=== PATIENT | female | born 1975 | race Caucasian/White ===

== ENCOUNTER 2016-12-09 08:41 | Emergency (ER) | payer SELFPAY ==
--- NOTE | 2016-12-09 11:22 | DIAGNOSTIC IMAGING REPORT ---
PROCEDURE: CT ABD/PELVIS WITH CONTRAST INDICATION: Right abdominal pain. History of cholecystectomy and section. TECHNIQUE: 125 ml of Isovue 300 were injected intravenously and axial images were obtained of the entire abdomen and pelvis with sagittal and coronal reformations. COMPARISON: None. FINDINGS: ABDOMEN: Status post cholecystectomy. Borderline distention of the common duct 10 mm) with mild intrahepatic ductal dilation). Mild mucosal thickening of the distal antral folds of the stomach. Bowel pattern is otherwise normal, including appendix. Liver, spleen, pancreas, kidneys, and aorta are normal. PELVIS: Uterus is bulbous, with probable fibroid changes and cervical Nabothian cysts. section scar. Left ovary is enlarged (4.0 cm) secondary to a 3.5 cm cyst. Right ovary is normal (2.87 meters). No evidence of free fluid. IMPRESSION: 1. Status post cholecystectomy. 2. Borderline distention of the common bile duct (10 mm) with mild intrahepatic ductal dilation. While this may be normal post cholecystectomy, consider occult common duct obstruction. Correlation with liver function studies is recommended. 3. Findings suggest mild mucosal thickening of the distal gastric antrum. Consider hyperacidity/gastritis. 4. Normal appendix. 5. Mild enlargement of the left ovary (4 cm) secondary to a 3.5 cm cyst. Follow-up pelvic ultrasound (3-4 weeks) is recommended to confirm resolution). 6. Mild enlargement the uterus suggest fibroid changes. 7. Findings discussed with Dr. Channing Burrell. All CT scans at this facility use dose modulation, iterative reconstruction, and/or weight-based dosing when appropriate to reduce radiation dose to as low as reasonably achievable.
--- NOTE | 2016-12-09 12:00 | ED ORDER SUMMARY ---
..... Patient: BRIANNA RAMIREZ OrderSheet [facility] VisitID: [id number] [place] [address] 41y, F Registration Date/Time: 12/09/2016 ORDER SHEET Weight: 78.4 kg (stated) Allergies: None GENERAL ORDERS: CBC w Diff Urgent (09:12/09/2016 Sheila MARES) (Ack 9:08 LNations ER Tech1) (9:14 JBoardley R.N.) CMP Urgent (09:12/09/2016 Sheila MARES) (Ack 9:08 LNations ER Tech1) (9:14 JBoardley R.N.) UA-Culture if indicated Urgent (09:12/09/2016 Sheila MARES) (Ack 9:08 LNations ER Tech1) (9:14 JBoardley R.N.) Amylase Urgent (09:12/09/2016 Sheila MARES) (Ack 9:08 LNations ER Tech1) (9:14 JBoardley R.N.) Lipase Urgent (09:12/09/2016 Sheila MARES) (Ack 9:08 LNations ER Tech1) (9:14 JBoardley R.N.) Urine Urgent (09:12/09/2016 Sheila MARES) (Ack 9:08 LNations ER Tech1) (9:14 JBoardley R.N.) CT Abd/Pel w Cont (No) (See report) Urgent (10:25 12/09/2016 Sheila MARES) (Ack 10:28 LNations ER Tech1) (10:53 JBoardley R.N.) MEDICATION ORDERS: IV FLUIDS: IV NS : initial bolus 500 mL (1000 mL/hr), then 125 mL/hr for 4h (NOW); Urgent (09:06 12/09/2016 Sheila MARES) (9:13 JBoardley R.N.) Zofran IV 4 mg (NOW) (09:14 12/09/2016 JBoardley R.N. per protocol) (9:14 JBoardley R.N.) Dilaudid IV 0.5 mg (HIGH ALERT MEDICATION, NOW) (10:20 12/09/2016 Sheila MARES) (Ack 10:20 JBoardley R.N.) (10:28 JBoardley R.N.) Dilaudid IV 0.5 mg (HIGH ALERT MEDICATION, NOW) (10:29 12/09/2016 JBoardley R.N. verbal order read back to Sheila MARES) (10:29 JBoardley R.N.) IV NS : initial bolus none -, then 125 mL/hr for 4h (NOW) (10:29 12/09/2016 JBoardley R.N. verbal order read back to Sheila MARES) (10:30 JBoardlemae R.N.) Zofran IV 4 mg (NOW) (11:00 12/09/2016 JBoarroro R.N. verbal order read back to Sheila MARES) (11:01 JBoardley R.N.) Dilaudid IV 0.5 mg (HIGH ALERT MEDICATION, NOW) (11:12/09/2016 JBoarroro R.N. verbal order read back to Sheila MARES) (11:01 JBoarroro R.N.) Protonix IVP 80mg 80 mg (Mix in NS 20ml over 4min) (11:19 12/09/2016 Sheila MARES) (Ack 11:23 JBoardley R.N.) (11:55 JBoardley R.N.) ORDER SHEET NOTES: [Electronically signed by Channing Burrell MD (12:50 12/09/2016)] [Electronically signed by Lavelle Kulkarni R.N. (14:15 12/09/2016)] [Electronically locked/signed by Lavelle Kulkarni R.N. (14:15 12/09/2016)]
--- NOTE | 2016-12-09 12:00 | ED ORDER SUMMARY ---
..... Patient: BRIANNA RAMIREZ OrderSheet [facility] VisitID: [id number] [place] [address] 41y, F Registration Date/Time: 12/09/2016 ORDER SHEET Weight: 78.4 kg (stated) Allergies: None GENERAL ORDERS: CBC w Diff Urgent (09:12/09/2016 Sheila MARES) (Ack 9:08 LNations ER Tech1) (9:14 JBoardley R.N.) CMP Urgent (09:12/09/2016 Sheila MARES) (Ack 9:08 LNations ER Tech1) (9:14 JBoardley R.N.) UA-Culture if indicated Urgent (09:12/09/2016 Sheila MARES) (Ack 9:08 LNations ER Tech1) (9:14 JBoardley R.N.) Amylase Urgent (09:12/09/2016 Sheila MARES) (Ack 9:08 LNations ER Tech1) (9:14 JBoardley R.N.) Lipase Urgent (09:12/09/2016 Sheila MARES) (Ack 9:08 LNations ER Tech1) (9:14 JBoardley R.N.) Urine Urgent (09:12/09/2016 Sheila MARES) (Ack 9:08 LNations ER Tech1) (9:14 JBoardley R.N.) CT Abd/Pel w Cont (No) (See report) Urgent (10:25 12/09/2016 Sheila MARES) (Ack 10:28 LNations ER Tech1) (10:53 JBoardley R.N.) MEDICATION ORDERS: IV FLUIDS: IV NS : initial bolus 500 mL (1000 mL/hr), then 125 mL/hr for 4h (NOW); Urgent (09:06 12/09/2016 Sheila MARES) (9:13 JBoardley R.N.) Zofran IV 4 mg (NOW) (09:14 12/09/2016 JBoardley R.N. per protocol) (9:14 JBoardley R.N.) Dilaudid IV 0.5 mg (HIGH ALERT MEDICATION, NOW) (10:20 12/09/2016 Sheila MARES) (Ack 10:20 JBoardley R.N.) (10:28 JBoardley R.N.) Dilaudid IV 0.5 mg (HIGH ALERT MEDICATION, NOW) (10:29 12/09/2016 JBoardley R.N. verbal order read back to Sheila MARES) (10:29 JBoardley R.N.) IV NS : initial bolus none -, then 125 mL/hr for 4h (NOW) (10:29 12/09/2016 JBoardley R.N. verbal order read back to Sheila MARES) (10:30 JBoardlemae R.N.) Zofran IV 4 mg (NOW) (11:00 12/09/2016 JBoarroro R.N. verbal order read back to Sheila MARES) (11:01 JBoardley R.N.) Dilaudid IV 0.5 mg (HIGH ALERT MEDICATION, NOW) (11:12/09/2016 JBoarroro R.N. verbal order read back to Sheila MARES) (11:01 JBoarroro R.N.) Protonix IVP 80mg 80 mg (Mix in NS 20ml over 4min) (11:19 12/09/2016 Sheila MARES) (Ack 11:23 JBoardley R.N.) (11:55 JBoardley R.N.) ORDER SHEET NOTES: [Electronically signed by Channing Burrell MD (12:50 12/09/2016)] [Electronically signed by Lavelle Kulkarni R.N. (14:15 12/09/2016)] [Electronically locked/signed by Lavelle Kulkarni R.N. (14:15 12/09/2016)]
--- NOTE | 2016-12-09 12:00 | ED NURSING NOTES ---
Clinical Report - Nurses [facility] [address] [place] [address] 12/09/2016 8:46 Patient: BRIANNA RAMIREZ TRIAGE Triage time 08:50 Dec 09 2016. Acuity: LEVEL 3. Chief Complaint: ABDOMINAL PAIN, NAUSEA, VOMITING and DIARRHEA. 08:51 12/09/16. 08:51 12/09/16. Alert. ( Abd pain that started this AM around 0500.). SEPSIS SCREEN: Sepsis Screen. Negative (no infection suspected/documented). --08:52 Lavelle Kulkarni R.N. Alert. SEPSIS SCREEN: Sepsis Screen. Negative (no infection suspected/documented). --08:55 Lavelle Kulkarni R.N. 08:52 12/09/16. BP: 159/107. HR: 85. RR: 18. O2 saturation: 100% on room air. Temp: 97.8 F (oral). Pain level now: 04/22. --08:55 Lavelle Kulkarni R.N. Weight: 78.4 kg stated. Height/Length: 66 inches Per Patient. BMI: 27.9. --08:53 Lavelle Kulkarni R.N. Medications None. --08:52 Lavelle Kulkarni R.N. Medication/allergy information source: the patient. --08:52 Lavelle Kulkarni R.N. Allergies None. --08:52 Lavelle Kulkarni R.N. History Arrived by private vehicle. Historian: patient. Primary physician (DOCTOR, PT STATES NO). 08:51 12/09/16. Last oral intake by patient was (This AM around 0500). 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 PAST MEDICAL HX: Immunizations: up-to-date. SOCIAL HX: Never smoker. No alcohol use or drug use. No recent travel. No known contact with a sick individual. ABUSE ASSESSMENT: No report of abuse. FALL RISK ASSESSMENT: Fall risk assessment completed. No fall risk identified. NUTRITIONAL RISK ASSESSMENT: The nutritional risk assessment revealed no deficiencies. FUNCTIONAL ASSESSMENT: Functional assessment: no impairments noted. LEARNING NEEDS ASSESSMENT: The learning needs assessment revealed no barriers. SKIN INTEGRITY ASSESSMENT: Skin integrity risk assessment completed. No skin integrity risk identified. --08:52 Lavelle Kulakrni R.N. PAST MEDICAL HX: Last normal menstrual period- Started the 15 of November. --08:55 Lavelle Kulkarni R.N. PROBLEMS: no known problems. ADDITIONAL SURGERIES: no known surgeries. Assessment 08:51 12/09/16. --08:52 Lavelle Kulkarni R.N. Interventions 08:51 12/09/16. 08:51 12/09/16. ID and allergy band on patient. To treatment room. --08:52 Lavelle Kulkarni R.N. PHYSICAL ASSESSMENT 08:53 12/09/16. Ambulatory to room. GENERAL / NEURO / PSYCH: Appears in pain. RESPIRATORY: Respirations not labored. Breath sounds within normal limits. CVS: Capillary refill less than 2 seconds. GI / : Abdominal tenderness in the right lower quadrant (that radiates to pts back). SKIN: Skin is warm and dry. --08:54 Lavelle Kulkarni R.N. NURSING PROGRESS NOTES 08:54 12/09/16. Two patient identifiers checked. Call light placed in reach. Side rails up x 2. Bed placed in lowest position. Brakes of bed on. Patient ready for evaluation- chart flagged and notification provided. --08:54 Lavelle Kulkarni R.N. 08:54 12/09/16. The plan of care for this patient has been created. Patient gowned. Head of bed elevated. --08:54 Lavelle Kulkarni R.N. 09:13 12/09/2016 Site #1 started via IV in the left hand with an 20g angiocath, with aseptic technique and good blood return; one attempt. Blood drawn: rainbow set. Labeled in the presence of the patient and sent to the lab. Saline lock flushed with 10 mL saline. --09:13 Lavelle Kulkarni R.N. 09:13 12/09/2016 Started bag #1 1000 mL IV Fluids IV NS (Saline); at 1000 mL/hr over 1 hour(s) via site #1. Allergies verified and confirmed 5 rights. IV patency established. IV site checked: no pain, redness, or swelling. IV flushed thoroughly pre- and post-medication administration. Completed per protocol. --09:14 Lavelle Kulkarni R.N. 09:14 12/09/2016 Zofran (Ondansetron HCl) IVP 4 mg given over 2 minute(s) via site #1. Allergies verified and confirmed 5 rights. IV patency established. IV site checked: no pain, redness, or swelling. IV flushed thoroughly pre- and post-medication administration. IVP given by RN. --09:14 Lavelle Kulkarni R.N. 09:14 12/09/16. Patient ID band checked for patient name and birthdate. Clean catch urine collected with return of yellow-colored urine; sample sent to lab for urinalysis, culture and HCG. Specimen labeled in the presence of the patient. --09:14 Lavelle Kulkarni R.N. 09:21 12/09/16. Patient informed about reason for wait and about plan of care. --09:21 Lavelle Kulkarni R.N. 09:25 12/09/16. BP: 146/98. HR: 72. RR: 14. O2 saturation: 99% on room air. --09:26 Lavelle Kulkarni R.N. 09:26 12/09/16. --09:26 Lavelle Kulkarni R.N. 10:12/09/2016 Site #1. Converted to saline lock. Flushed with 10 mL saline. --10:02 Ritika Toledo R.N. 10:02 12/09/2016 IV Fluids IV NS Discontinued: bag #1 infused. Total amount infused: 1000 mL. --10:02 Ritika Toledo R.N. 10:12/09/16. Reassessment after medication administered. She has had no adverse reaction. Overall patient status is improved- she states feels better. --10:09 Lavelle Kulkarni R.N. 10:18 12/09/2016 Dilaudid (HYDROmorphone HCl PF) IVP 0.5 mg given over 2 minute(s) via site #1. Allergies verified, confirmed 5 rights and sedative warning given to the patient. IV patency established. IV site checked: no pain, redness, or swelling. IV flushed thoroughly pre- and post-medication administration. IVP given by RN. --10:28 Lavelle Kulkarni R.N. 10:12/09/2016 Dilaudid (HYDROmorphone HCl PF) IVP 0.5 mg given over 2 minute(s) via site #1. Allergies verified, confirmed 5 rights and sedative warning given to the patient. IV patency established. IV site checked: no pain, redness, or swelling. IV flushed thoroughly pre- and post-medication administration. IVP given by RN. --10:29 Lavelle Kulkarni R.N. 10:12/09/2016 Started bag #1 1000 mL IV Fluids IV NS (Saline); at 125 mL/hr over 4 hour(s) via site #1. Allergies verified and confirmed 5 rights. IV patency established. IV site checked: no pain, redness, or swelling. IV flushed thoroughly pre- and post-medication administration. Completed per protocol. --10:30 Lavelle Kulkarni R.N. 10:30 12/09/16. --10:30 Lavelle Kulkarni R.N. 10:12/09/16. BP: 136/89. HR: 81. RR: 15. O2 saturation: 98% on room air. Temp: 98.2 F (oral). Pain level now: 01/20. --10:30 Lavelle Kulkarni R.N. 10:12/09/16. Patient informed about reason for wait and about plan of care. --10:31 Lavelle Kulkarni R.N. 10:12/09/16. Patient waiting for CT to be done. --10:31 Lavelle Kulkarni R.N. 11:12/09/2016 Zofran (Ondansetron HCl) IVP 4 mg given over 2 minute(s) via site #1. Allergies verified and confirmed 5 rights. IV patency established. IV site checked: no pain, redness, or swelling. IV flushed thoroughly pre- and post-medication administration. IVP given by RN. --11:01 Lavelle Kulkarni R.N. 11:12/09/2016 Dilaudid (HYDROmorphone HCl PF) IVP 0.5 mg given over 2 minute(s) via site #1. Allergies verified, confirmed 5 rights and sedative warning given to the patient. IV patency established. IV site checked: no pain, redness, or swelling. IV flushed thoroughly pre- and post-medication administration. IVP given by RN. --11: Lavelle Kulkarni R.N. 11:00 12/09/16. BP: 111/58. HR: 78. RR: 16. O2 saturation: 99% on room air. --11: Lavelle Kulkarni R.N. 11:12/09/16. --11: Lavelle Kulkarni R.N. 11:12/09/16. Patient informed about reason for wait and about plan of care. --11: Lavelle Kulkarni R.N. 11:02 12/09/16. Patient waiting for CT results. --11: Lavelle Kulkarni R.N. 11:55 12/09/2016 PROTONIX (Pantoprazole Sodium) IVP 80 mg given over 5 minute(s) via site #1. Allergies verified and confirmed 5 rights. IV patency established. IV site checked: no pain, redness, or swelling. IV flushed thoroughly pre- and post-medication administration. IVP given by RN. --11:55 Lavelle Kulkarni R.N. 12:04 12/09/2016 IV Fluids IV NS Discontinued: bag #2 infused upon discharge. Total amount infused: 400 mL. IV patency established. IV site checked: no pain, redness, or swelling. IV flushed thoroughly. --12:09 Lavelle Kulkarni R.N. DISPOSITION / DISCHARGE 12:12/09/2016 Site #1 removed upon discharge. Catheter intact. --12:08 Lavelle Kulkarni R.N. 12:12/09/16. Condition at departure: improved. The goals identified in the patient's plan of care were met. No learning barriers present. Discharge instructions provided and reviewed with the patient. Reviewed warnings. Reviewed medication(s). Treatments reviewed. Patient verbalized understanding. Written instructions provided in Belgian. ( Pt aware to follow up in 24 hrs for recheck). The patient was discharged by the physician. She was discharged home and accompanied by concrete technician. She left the Emergency Department ambulatory and via private vehicle. Projector Booth Operator driving. FALL RISK ASSESSMENT: Fall risk assessment completed. No fall risk identified. --12:10 Lavelle Kulkarni R.N. 12:08 12/09/16. BP: 114/67. HR: 78. RR: 16. O2 saturation: 99% on room air. Temp: 98.1 F (oral). Pain level now: 08/23. --12:10 Lavelle Kulkarni R.N. 12:10 12/09/16. Departure time: 12:10. --12:10 Lavelle Kulkarni R.N. Locked/Released at 12/09/2016 14:15 by Lavelle Kulkarni R.N.
--- NOTE | 2016-12-09 12:00 | ED CLINICAL REPORT ---
Clinical Report - Physicians/Mid Levels [facility] [address] [place] [address] 12/09/2016 8:46 Patient: BRIANNA RAMIREZ Time Seen: 09:06. Arrived- By private vehicle. Historian- patient. HISTORY OF PRESENT ILLNESS Chief Complaint: ABDOMINAL PAIN. At its maximum, severity described as 10 / 10. When seen in the E.D., severity described as 10 / 10. Modifying factors- worsened by cough. This started today at about 5 AM. It was abrupt in onset and has been constant and waxing/waning. It is described as cramping and burning and it is described as located in the right lower quadrant and radiating to the upper back. The patient has had nausea. She has had severe vomiting. The vomiting has occurred several times. No coffee-grounds emesis or frankly bloody emesis. No diarrhea. Similar symptoms previously: None. REVIEW OF SYSTEMS Last normal menstrual period was 3 weeks ago. 2. Para 2. She has had a subjective fever and constipation. No black stools or stools, difficulty with urination or pain with urination. No urinary frequency or urinary problems, bloody stools or stools or chills. No sweats, calf pain, chest pain, cough or difficulty breathing. No pedal edema or palpitations. Denies current . Last bowel movement: yesterday. All systems otherwise negative, except as recorded above. PAST HISTORY Problems: no known problems. Additional Surgeries: C section X 2. Medications: None. Allergies: None. SOCIAL HISTORY Never smoker. No alcohol use or drug use. Is a local resident. Resides in a house. She lives with spouse. FAMILY HISTORY Denies family medical history. ADDITIONAL NOTES The nursing notes have been reviewed. PHYSICAL EXAM Vital Signs: 12/09/2016 08:52 BP: 159/107. HR: 85. RR: 18. O2 saturation: 100%. Temp: 97.8 F. Pain level now: 10/10. Have been reviewed. Appearance: Alert. Appears to be in pain. Eyes: Pupils equal, round and reactive to light. ENT: Pharynx normal. Neck: Normal inspection. Neck supple. CVS: Normal heart rate and rhythm. Heart sounds normal. Respiratory: No respiratory distress. Breath sounds normal. Abdomen: Soft. Moderate tenderness diffusely and in the right side of the abdomen. No organomegaly. No mass. Back: Normal inspection. : (deferred per patient). Skin: Skin warm and dry. Normal skin color. Normal skin turgor. Extremities: Extremities exhibit normal ROM. No calf tenderness. No lower extremity edema. LABS, X-RAYS, AND EKG Abdominal CT: IMPRESSION: 1. Status post cholecystectomy. 2. Borderline distention of the common bile duct (10 mm) with mild intrahepatic ductal dilation. While this may be normal post cholecystectomy, consider occult common duct obstruction. Correlation with liver function studies is recommended. 3. Findings suggest mild mucosal thickening of the distal gastric antrum. Consider hyperacidity/gastritis. 4. Normal appendix. 5. Mild enlargement of the left ovary (4 cm) secondary to a 3.5 cm cyst. Follow-up pelvic ultrasound (3-4 weeks) is recommended to confirm resolution). 6. Mild enlargement the uterus suggest fibroid changes. The study was independently viewed by me. Laboratory Tests: UA-Culture if indicated: (SARINA: 12/09/2016 09:00) ( [facility] 12/09/2016 10:21) IP Test Result Flag Units (Reference) URINE COLOR YELLOW URINE APPEARANCE CLEAR URINE GLUCOSE NEGATIVE (NEGATIVE) URINE BILIRUBIN NEGATIVE (NEGATIVE) URINE KETONE NEGATIVE (NEGATIVE) URINE SPECIFIC GRAVITY <= 1.005 L (1.010-1.030) URINE PH 6.0 (5.0-8.0) URINE PROTEIN NEGATIVE (NEGATIVE) URINE UROBILINOGEN 0.2 EU/dL (0.2-1.0) URINE NITRITE NEGATIVE (NEGATIVE) URINE BLOOD TRACE-LYSED (NEGATIVE) URINE LEUK ESTERASE NEGATIVE (NEGATIVE) Urine: (SARINA: 12/09/2016 09:00) ( [facility] 12/09/2016 09:33) Final results Test Result Flag Units (Reference) URINE NEGATIVE CBC w Diff: (SARINA: 12/09/2016 09:00) ( [facility] 12/09/2016 09:33) Final results Test Result Flag Units (Reference) WHITE BLOOD COUNT 12.4 H K/uL (4.5-11.5) RED BLOOD COUNT 4.93 M/uL (4.00-5.20) HEMOGLOBIN 14.7 gm/dL (12.0-16.0) HEMATOCRIT 43.8 % (36.0-46.0) MEAN CELL VOLUME 89 fL (80-100) MEAN CORPUSCULAR HGB 30 pg (26-34) MEAN CORPUSCULAR HGB CONC 34 g/dL (31-37) RED CELL DISTRIBUTION WIDTH 12.5 % (11.6-14.8) PLATELET COUNT 268 K/uL (150-400) NEUTROPHIL % 80.2 H % (50-75) LYMPH % 10.3 L % (25-40) MONO % 7.5 % (3-14) EOSINOPHIL % 1.9 % (0-4) BASOPHIL % 0.1 % (0-2) CMP: (SARINA: 12/09/2016 09:00) ( MsgRcvd 12/09/2016 09:49) Final results Test Result Flag Units (Reference) GLUCOSE 113 H mg/dL (70-110) BUN 15 mg/dL (7-18) CREATININE 0.7 mg/dL (0.6-1.3) Estimated GFR >60 mL/min Estimated GFR- >60 mL/min Note: Persistent reduction over 3 months in eGFR<60 mL/min/1.73 m2 defines CKD. Patients with eGFR values>=60 mL/min/1.73 m2 may also have CKD if evidence ofpersistent proteinuria. Additional information may be foundat www.kidney.org. SODIUM 132 L mmol/L (136-145) POTASSIUM 4.0 mmol/L (3.5-5.1) CHLORIDE 98 mmol/L (98-107) CARBON DIOXIDE 22 mmol/L (21-32) CALCIUM 8.7 mg/dL (8.5-10.1) TOTAL PROTEIN 7.5 g/dL (6.4-8.2) ALBUMIN 3.9 g/dL (3.3-5.0) BILIRUBIN, TOTAL 0.4 mg/dL (0.0-1.0) ALKALINE PHOSPHATASE 66 U/L (46-116) AST (SGOT) 12 L U/L (15-37) ALT (SGPT) 24 U/L (12-78) LIPASE 124 U/L (73-393) AMYLASE 34 U/L (25-115) . PROGRESS AND PROCEDURES Course of Care: Symptoms better. Vital signs have been reviewed. Physical exam findings are improved. Alert. Breath sounds normal. No respiratory distress. Normal heart rate and rhythm. Heart sounds normal. Abdomen soft and nontender. Skin warm and dry. Old medical records ordered. Old records unavailable. Disposition: Discharged. Condition: stable. CLINICAL IMPRESSION Left ovarian cyst. Constipation INSTRUCTIONS No driving or operating machinery while taking medication. Sedative medication was given during your visit. Drink plenty of fluids. (Mild enlargement of the left ovary (4 cm) secondary to a 3.5 cm cyst. Follow-up pelvic ultrasound (3-4 weeks) is recommended to confirm resolution).). Warnings: Further evaluation is necessary. GENERAL WARNINGS: Return or contact your physician immediately if your condition worsens or changes unexpectedly, if not improving as expected, or if other problems arise. SPECIFICALLY, return if you develop fever, vomiting, the inability to keep fluids down or blood in vomitus; or for a return of pain in the abdomen. Prescription Medications: Pepcid 20 mg tablets: Take 1 orally every 12 hours. Dispense thirty (30). No refills. Substitution is permissible. Fleet Enema 4.5 oz: Insert the enema into rectum gently and squeeze until nearly all the liquid is expelled. Dispense one (1) bottle. No refills. Substitution is permissible. OTC Medications: Magnesium Citrate (10-oz bottle) (available over the counter): take 1/2 bottle to achieve bowel movement. Repeat after 4 hours if needed. Follow-up: Follow up with your doctor tomorrow. Call for an appointment. Understanding of the discharge instructions verbalized by patient. (Electronically signed by Channing Burrell MD 12/09/2016 12:51)
--- NOTE | 2016-12-09 14:16 | ED DISCHARGE INSTRUCTIONS ---
Patient: BRIANNA RAMIREZ General Instructions [facility] VisitID: [id number] [place] [address] 41y, F Registration Date/Time: 12/09/2016 Left ovarian cyst. Constipation INSTRUCTIONS No driving or operating machinery while taking medication. Sedative medication was given during your visit. Drink plenty of fluids. (Mild enlargement of the left ovary (4 cm) secondary to a 3.5 cm cyst. Follow-up pelvic ultrasound (3-4 weeks) is recommended to confirm resolution).). Warnings: Further evaluation is necessary. GENERAL WARNINGS: Return or contact your physician immediately if your condition worsens or changes unexpectedly, if not improving as expected, or if other problems arise. SPECIFICALLY, return if you develop fever, vomiting, the inability to keep fluids down or blood in vomitus; or for a return of pain in the abdomen. Prescription Medications: Pepcid 20 mg tablets: Take 1 orally every 12 hours. Dispense thirty (30). No refills. Substitution is permissible. Fleet Enema 4.5 oz: Insert the enema into rectum gently and squeeze until nearly all the liquid is expelled. Dispense one (1) bottle. No refills. Substitution is permissible. OTC Medications: Magnesium Citrate (10-oz bottle) (available over the counter): take 1/2 bottle to achieve bowel movement. Repeat after 4 hours if needed. Follow-up: Follow up with your doctor tomorrow. Call for an appointment. Understanding of the discharge instructions verbalized by patient. ADDITIONAL INFORMATION Ovarian Cyst The ovary is a small organ located on each side of the uterus. During each menstrual cycle a tiny egg sac forms in the ovary. If the egg is released but does not occur, this sac usually dissolves. Sometimes, the sac may fill with fluid. It then enlarges into a painful cyst. Usually the cyst will rupture or shrink on its own. In either case, the pain gradually goes away over the next 1-3 days. If the cyst does not shrink or rupture, it may cause continued pain. Home Care: Rest in bed and avoid heavy exertion until you are feeling better. Heat to the lower abdomen usually helps (heating pad or hot packs -- a small towel soaked in hot water). You may use acetaminophen (Tylenol) or ibuprofen (Motrin, Advil) to control pain, unless another pain medicine was prescribed. [NOTE: If you have chronic liver or kidney disease or ever had a stomach ulcer or GI bleeding, talk with your doctor before using these medicines.] Follow Up: See your doctor within the next 2-3 days if your pain doesnt improve. Otherwise, follow up with your doctor after your next period or as directed by our staff. Get Prompt Medical Attention if any of the following occur: Pain worsens or fails to respond to the above measures Fever of 100.4F (38C) or higher, or as directed by your healthcare provider Heavy vaginal bleeding (soaking one pad an hour for three hours) You feel weak or dizzy Fainting Passage of a pink or andrade tissue with menstrual bleeding Constipation (Adult) Constipation is bowel movements that are less frequent than usual. Stools often become very hard and difficult to pass. This may lead to abdominal pain and bloating. It may also cause painful bowel movements. Constipation may be due to a diet thats low in fiber. Some medications, especially pain medications, can also cause it. Constipation may be treated with enemas, suppositories, laxatives or stool softeners. Your doctor will advise you which will work best for you. Follow the advice below to help avoid this problem in the future. Home Care Medication: Take any medicines as directed. Some laxatives are safe only for occasional use. Others can be taken on a regular basis. Talk to your doctor or pharmacist if you have questions. General Care: Prescription pain medications can cause constipation. If you are prescribed pain medications, ask the doctor whether you should also take a stool softener. A diet high in fiber with plenty of fluids helps to maintain regular, soft bowel movements. The following foods are good sources of dietary fiber: Cereals and breads: Whole grain cereal with bran, oatmeal, rolled oats, whole grain breads Fruits: All fruits (fresh and dried), raisins, prunes, apricots, berries, figs Vegetables: Any fresh vegetables, especially peas, broccoli, brussels sprouts, winter squash, green beans, cauliflower, goodwin beans, carrots Other: Popcorn, brown rice Drink plenty of water when you increase the amount of fiber you eat. Follow Up with your doctor or return to this facility if symptoms do not improve in the next few days. You may require further tests or a referral to a specialist. Get Prompt Medical Attention if any of the following occur: Fever over 100.4F (38C) Failure to resume normal bowel movements Increasing abdominal or back pain Nausea or vomiting Abdominal swelling Blood in the stool Weakness, dizziness or fainting Unexpected vaginal bleeding High Fiber Diet Fiber is present in all fruits, vegetables, cereals and grains. Fiber passes through the body undigested. A high fiber diet helps food move through the intestinal tract. The added bulk is helpful in preventing constipation. In people with diverticulosis it serves to clean out the pouches along the colon wall while preventing new ones from forming. A high fiber diet also reduces the risk of colon cancer, decreases blood cholesterol and prevents high blood sugar in people with diabetes. The foods listed below are high in fiber and should be included in your diet. If you are not used to high fiber foods, start with 1 or 2 foods from this list. Every 3-4 days add a new one to your diet until you are eating 4 high fiber foods per day. This should give you 20-35 Gm of fiber/day. It is also important to drink a lot of water when you are on this diet (6-8 glasses a day). Water causes the fiber to swell and increases the benefit. Foods High In Dietary Fiber: BREADS: Made with 100% whole wheat flour; mayte, wheat or rye crackers; tortillas, bran muffins CEREALS: Whole grain cereal with bran (Chex, Raisin Bran, Virgie Bran), oatmeal, rolled oats, granola, wheat flakes, brown rice NUTS: Any nuts FRUITS: All fresh fruits along with edible skins, (bananas, citrus fruit, mangoes, pears, prunes, raisins, apples, pineapple, apricot, melon, jams and marmalades), fruit juices (especially prune juice) VEGETABLES: All types, preferably raw or lightly cooked: especially, celery, eggplant, potatoes,spinach, broccoli, brussel sprouts, winter squash, carrots, cauliflower, soybeans, lentils, fresh and dried beans of all kinds OTHER: Popcorn, any spices Famotidine Oral tablet What is this medicine? FAMOTIDINE (solo ramsey jennifer) is a type of antihistamine that blocks the release of stomach acid. It is used to treat stomach or intestinal ulcers. It can also relieve heartburn from acid reflux. How should I use this medicine? Take this medicine by mouth with a glass of water. Follow the directions on the prescription label. If you only take this medicine once a day, take it at bedtime. Take your doses at regular intervals. Do not take your medicine more often than directed. Talk to your electronic tester regarding the use of this medicine in children. Special care may be needed. What side effects may I notice from receiving this medicine? Side effects that you should report to your doctor or health progressive care unit registered nurse as soon as possible: agitation, nervousness confusion hallucinations skin rash, itching Side effects that usually do not require medical attention (report to your doctor or health progressive care unit registered nurse if they continue or are bothersome): constipation diarrhea dizziness headache What may interact with this medicine? delavirdine itraconazole ketoconazole What if I miss a dose? If you miss a dose, take it as soon as you can. If it is almost time for your next dose, take only that dose. Do not take double or extra doses. Where should I keep my medicine? Keep out of the reach of children. Store at room temperature between 15 and 30 degrees C (59 and 86 degrees F). Do not freeze. Throw away any unused medicine after the expiration date. What should I tell my health care provider before I take this medicine? They need to know if you have any of these conditions: kidney or liver disease trouble swallowing an unusual or allergic reaction to famotidine, other medicines, foods, dyes, or preservatives or trying to get breast-feeding What should I watch for while using this medicine? Tell your doctor or health progressive care unit registered nurse if your condition does not start to get better or if it gets worse. Finish the full course of tablets prescribed, even if you feel better. Do not take with aspirin, ibuprofen or other antiinflammatory medicines. These can make your condition worse. Do not smoke cigarettes or drink alcohol. These cause irritation in your stomach and can increase the time it will take for ulcers to heal. If you get black, tarry stools or vomit up what looks like coffee grounds, call your doctor or health progressive care unit registered nurse at once. You may have a bleeding ulcer. You have been given the following additional information: Ovarian Cyst Constipation (Adult) Diet, High Fiber Famotidine Oral tablet No driving or operating machinery while taking medication. Sedative medication was given during your visit. (Electronically signed by Channing Burrell MD 12/09/2016 12:51)
--- NOTE | 2016-12-09 14:16 | ED MAR SUMMARY ---
..... Medication Administration Record [facility] [address] [place] [address] Patient: BRIANNA RAMIREZ Visit ID: [id number] 41y, F Weight: 78.4 kg Height/Length: 66 in BMI: 27.9 ALLERGIES: None Start 09:13 12/09/2016 Lavelle Kulkarni R.N., Stop 10:02 12/09/2016 Ritika Toledo R.N. Medication Administered: IV NS (SALINE), Dose: IV Fluids over 1 hour(s), Rate: 1000 mL/hr, Dispensed: 1000 mL bag, Site: #1 left hand. Medication Ordered: IV NS : initial bolus 500 mL (1000 mL/hr), then 125 mL/hr for 4h (NOW); Urgent. Given 09:14 12/09/2016 Lavelle Kulkarni R.N. Medication Administered: ZOFRAN [IVP] (ONDANSETRON HCL), Dose: 4 mg IVP over 2 minute(s), Site: #1 left hand. Medication Ordered: Zofran IV 4 mg (NOW). Given 10:18 12/09/2016 Lavelle Kulkarni R.N. Medication Administered: DILAUDID [IVP] (HYDROMORPHONE HCL PF), Dose: 0.5 mg IVP over 2 minute(s), Site: #1. Medication Ordered: Dilaudid IV 0.5 mg (HIGH ALERT MEDICATION, NOW). Given 10:12/09/2016 Lavelle Kulkarni R.N. Medication Administered: DILAUDID [IVP] (HYDROMORPHONE HCL PF), Dose: 0.5 mg IVP over 2 minute(s), Site: #1. Medication Ordered: Dilaudid IV 0.5 mg (HIGH ALERT MEDICATION, NOW). Start 10:30 12/09/2016 Lavelle Kulkarni R.N., Stop 12:04 12/09/2016 Lavelle Kulkarni R.N. Medication Administered: IV NS (SALINE), Dose: IV Fluids over 4 hour(s), Rate: 125 mL/hr, Dispensed: 1000 mL bag, Site: #1. Medication Ordered: IV NS : initial bolus none -, then 125 mL/hr for 4h (NOW). Given 11:12/09/2016 Lavelle Kulkarni R.N. Medication Administered: ZOFRAN [IVP] (ONDANSETRON HCL), Dose: 4 mg IVP over 2 minute(s), Site: #1. Medication Ordered: Zofran IV 4 mg (NOW). Given 11:12/09/2016 Lavelle Kulkarni R.N. Medication Administered: DILAUDID [IVP] (HYDROMORPHONE HCL PF), Dose: 0.5 mg IVP over 2 minute(s), Site: #1. Medication Ordered: Dilaudid IV 0.5 mg (HIGH ALERT MEDICATION, NOW). Given 11:12/09/2016 Lavelle Kulkarni R.N. Medication Administered: PROTONIX [IVP] (PANTOPRAZOLE SODIUM), Dose: 80 mg IVP over 5 minute(s), Site: #1. Medication Ordered: Protonix IVP 80mg 80 mg (Mix in NS 20ml over 4min).
--- NOTE | 2016-12-09 14:16 | ED MED RECONCILIATION SUMMARY ---
Patient: BRIANNA RAMIREZ Medication Reconciliation Report [facility] VisitID: [id number] [address] [place] [address] 41y, F Registration Date/Time: 12/09/2016 Weight: 78.4 kg Height/Length: 66 in. BMI: 27.9 ALLERGIES: None The patient's Home Medications are listed below: NONE. The source(s) of the original Home Medication information: patient The following Medications were given to the patient in the Emergency Department: IV NS IV Fluids bolus 0, then 1000 mL/hr, administered: 12/09/2016 9:13:00 AM Zofran [IVP] IVP 4 mg, administered: 12/09/2016 9:14:00 AM Dilaudid [IVP] IVP 0.5 mg, administered: 12/09/2016 10:18:00 AM Dilaudid [IVP] IVP 0.5 mg, administered: 12/09/2016 10:29:00 AM IV NS IV Fluids bolus 0, then 125 mL/hr, administered: 12/09/2016 10:30:00 AM Zofran [IVP] IVP 4 mg, administered: 12/09/2016 11:01:00 AM Dilaudid [IVP] IVP 0.5 mg, administered: 12/09/2016 11:01:00 AM PROTONIX [IVP] IVP 80 mg, administered: 12/09/2016 11:55:00 AM The following Medications were prescribed to the patient: Pepcid 20 mg tablets: Take 1 orally every 12 hours. Dispense thirty (30). No refills. Substitution is permissible. -- Channing Burrell MD Magnesium Citrate (10-oz bottle) (available over the counter): take 1/2 bottle to achieve bowel movement. Repeat after 4 hours if needed. -- Channing Burrell MD Fleet Enema 4.5 oz: Insert the enema into rectum gently and squeeze until nearly all the liquid is expelled. Dispense one (1) bottle. No refills. Substitution is permissible. -- Channing Burrell MD
--- NOTE | 2016-12-09 14:16 | ED MAR SUMMARY ---
..... Medication Administration Record [facility] [address] [place] [address] Patient: BRIANNA RAMIREZ Visit ID: [id number] 41y, F Weight: 78.4 kg Height/Length: 66 in BMI: 27.9 ALLERGIES: None Start 09:13 12/09/2016 Lavelel Kulkarni R.N., Stop 10:02 12/09/2016 Ritika Toledo R.N. Medication Administered: IV NS (SALINE), Dose: IV Fluids over 1 hour(s), Rate: 1000 mL/hr, Dispensed: 1000 mL bag, Site: #1 left hand. Medication Ordered: IV NS : initial bolus 500 mL (1000 mL/hr), then 125 mL/hr for 4h (NOW); Urgent. Given 09:14 12/09/2016 Lavelle Kulkarni R.N. Medication Administered: ZOFRAN [IVP] (ONDANSETRON HCL), Dose: 4 mg IVP over 2 minute(s), Site: #1 left hand. Medication Ordered: Zofran IV 4 mg (NOW). Given 10:18 12/09/2016 Lavelle Kulkarni R.N. Medication Administered: DILAUDID [IVP] (HYDROMORPHONE HCL PF), Dose: 0.5 mg IVP over 2 minute(s), Site: #1. Medication Ordered: Dilaudid IV 0.5 mg (HIGH ALERT MEDICATION, NOW). Given 10:12/09/2016 Lavelle Kulkarni R.N. Medication Administered: DILAUDID [IVP] (HYDROMORPHONE HCL PF), Dose: 0.5 mg IVP over 2 minute(s), Site: #1. Medication Ordered: Dilaudid IV 0.5 mg (HIGH ALERT MEDICATION, NOW). Start 10:30 12/09/2016 Lavelle Kulkarni R.N., Stop 12:04 12/09/2016 Lavelle Kulkarni R.N. Medication Administered: IV NS (SALINE), Dose: IV Fluids over 4 hour(s), Rate: 125 mL/hr, Dispensed: 1000 mL bag, Site: #1. Medication Ordered: IV NS : initial bolus none -, then 125 mL/hr for 4h (NOW). Given 11:12/09/2016 Lavelle Kulkarni R.N. Medication Administered: ZOFRAN [IVP] (ONDANSETRON HCL), Dose: 4 mg IVP over 2 minute(s), Site: #1. Medication Ordered: Zofran IV 4 mg (NOW). Given 11:12/09/2016 Lavelle Kulkarni R.N. Medication Administered: DILAUDID [IVP] (HYDROMORPHONE HCL PF), Dose: 0.5 mg IVP over 2 minute(s), Site: #1. Medication Ordered: Dilaudid IV 0.5 mg (HIGH ALERT MEDICATION, NOW). Given 11:12/09/2016 Lavelle Kulkarni R.N. Medication Administered: PROTONIX [IVP] (PANTOPRAZOLE SODIUM), Dose: 80 mg IVP over 5 minute(s), Site: #1. Medication Ordered: Protonix IVP 80mg 80 mg (Mix in NS 20ml over 4min).
--- NOTE | 2016-12-09 14:16 | ED MED RECONCILIATION SUMMARY ---
Patient: BRIANNA RAMIREZ Medication Reconciliation Report [facility] VisitID: [id number] [address] [place] [address] 41y, F Registration Date/Time: 12/09/2016 Weight: 78.4 kg Height/Length: 66 in. BMI: 27.9 ALLERGIES: None The patient's Home Medications are listed below: NONE. The source(s) of the original Home Medication information: patient The following Medications were given to the patient in the Emergency Department: IV NS IV Fluids bolus 0, then 1000 mL/hr, administered: 12/09/2016 9:13:00 AM Zofran [IVP] IVP 4 mg, administered: 12/09/2016 9:14:00 AM Dilaudid [IVP] IVP 0.5 mg, administered: 12/09/2016 10:18:00 AM Dilaudid [IVP] IVP 0.5 mg, administered: 12/09/2016 10:29:00 AM IV NS IV Fluids bolus 0, then 125 mL/hr, administered: 12/09/2016 10:30:00 AM Zofran [IVP] IVP 4 mg, administered: 12/09/2016 11:01:00 AM Dilaudid [IVP] IVP 0.5 mg, administered: 12/09/2016 11:01:00 AM PROTONIX [IVP] IVP 80 mg, administered: 12/09/2016 11:55:00 AM The following Medications were prescribed to the patient: Pepcid 20 mg tablets: Take 1 orally every 12 hours. Dispense thirty (30). No refills. Substitution is permissible. -- Channing Burrell MD Magnesium Citrate (10-oz bottle) (available over the counter): take 1/2 bottle to achieve bowel movement. Repeat after 4 hours if needed. -- Channing Burrell MD Fleet Enema 4.5 oz: Insert the enema into rectum gently and squeeze until nearly all the liquid is expelled. Dispense one (1) bottle. No refills. Substitution is permissible. -- Channing Burrell MD
== END 2016-12-09 12:10 | disposition home or self-care (01) ==
LOC: ED SRH 08:41
DX: N83.202 Unspecified ovarian cyst, left side (principal); K59.00 Constipation, unspecified; R11.2 Nausea with vomiting, unspecified
CPT/HCPCS: 90004; 90100; 92235; 92530; 93070; 95059